=== PATIENT | female | born 1960 | race Caucasian/White ===

== ENCOUNTER 2021-12-03 15:19 | Emergency (ER) | payer MEDICAID, OTHER, SELFPAY ==
[~2021-12-03] VITALS: Ht 152.4 cm; Wt 72.7 kg
[~2021-12-03 15:19] MED LIST: PROP50TA3 PO
[2021-12-03] MEDS ORDERED: METF-81 PO (15:46)
[2021-12-03] MEDS ORDERED: IBUPROFEN 600 MG TABLET PO ONE (16:15)
[2021-12-03] MEDS ORDERED: IBUPROFEN 100 MG/5 ML SUSPENSION UDCUP PO ONE (16:15)
[2021-12-03 17:33] VITALS: BP 138/77
== END 2021-12-03 17:49 | disposition home or self-care (01) ==
LOC: EMS 15:19
DX: S63.611A Unspecified sprain of left index finger, initial encounter (principal); S63.617A Unspecified sprain of left little finger, initial encounter; E11.9 Type 2 diabetes mellitus without complications; E78.00 Pure hypercholesterolemia, unspecified; I10 Essential (primary) hypertension; W20.8XXA Other cause of strike by thrown, projected or falling object, initial encounter; Y93.89 Activity, other specified; Y92.89 Other specified places as the place of occurrence of the external cause; Y99.8 Other external cause status
CPT/HCPCS: 82962; 99283